=== PATIENT | male | born 1955 | race Caucasian/White ===

== ENCOUNTER 2018-01-19 05:59 | Inpatient (IN) | payer OTHER ==
[2018-01-19] MEDS ORDERED: DEXAMETHASONE 4 MG/ML 1 ML INJ ×2 (07:00→08:14)
[2018-01-19] MEDS ORDERED: CEFAZOLIN 1 GM INJ (07:00)
[2018-01-19] MEDS ORDERED: PROPOFOL 200 MG INJ (07:00)
[2018-01-19] MEDS: LACTATED RINGER'S 1,000 ML IV ×2 (07:16→16:48)
[2018-01-19] MEDS ORDERED: HYDROmorphONE 1 MG/5 ML IV SYRINGE IV (07:30)
[2018-01-19] MEDS ORDERED: ALBUTEROL 0.083% (NEB) 2.5 MG/3 ML AMP HHN (07:30)
[2018-01-19] MEDS ORDERED: OXYCODONE/ACETAMINOPHEN (5/325) TAB PO ×2 (07:30)
[2018-01-19] MEDS ORDERED: FENTAnyl 50 MCG/ML VIAL IV ×2 (07:30)
[2018-01-19] MEDS ORDERED: METOCLOPRAMIDE 10 MG INJ IV (07:30)
[2018-01-19] MEDS ORDERED: MEPERIDINE 25 MG INJ IV (07:30)
[2018-01-19] MEDS ORDERED: DIPHENHYDRAMINE 50 MG INJ IV (07:30)
[2018-01-19] MEDS: CEFTRIAXONE 1 GM/50 ML (PMX) 50 ML IVPB (07:36)
[2018-01-19] MEDS ORDERED: MIDAZOLAM 1 MG/ML 2 ML INJ (07:37)
[2018-01-19] MEDS ORDERED: SUCCINYLCHOLINE CHLORIDE 100 MG/5 ML SYG IV (07:41)
[2018-01-19] MEDS ORDERED: SUGAMMADEX SODIUM 200 MG/2 ML VIAL IV (07:41)
[2018-01-19] MEDS ORDERED: ROCURONIUM 50 MG INJ (07:41)
[2018-01-19] MEDS ORDERED: PROPOFOL 20 ML (07:41)
[2018-01-19] MEDS ORDERED: LIDOCAINE 100 MG SYRINGE (07:41)
[2018-01-19] MEDS ORDERED: FENTAnyl 50 MCG/ML VIAL (07:43)
[2018-01-19] MEDS: LIDOCAINE 1%/EPI 30 ML INJ (08:38)
[2018-01-19] MEDS: THROMBIN 5000 UNIT VIAL (09:00)
[2018-01-19] MEDS: GELATIN SIZE 100 SPONGE (09:00)
[2018-01-19] MEDS: POLYMYXIN/BACITRACIN 1L IRRIG (09:00)
[2018-01-19] MEDS: BUPIVACAINE 0.25% (MPF) 30 ML INJ (10:50)
[2018-01-19] MEDS ORDERED: NALOXONE (0.4 MG/ML) INJ IV (11:30)
[2018-01-19] MEDS ORDERED: ONDANSETRON 4 MG INJ IV (11:30)
[2018-01-19] MEDS ORDERED: ZOLPIDEM 5 MG TAB PO (11:30)
[2018-01-19] MEDS ORDERED: NACL 0.9% 3 ML SYG IV (11:30)
[2018-01-19] MEDS: HYDROmorphONE 1 MG/5 ML IV SYRINGE IV ×2 (11:46→11:57)
[2018-01-19] MEDS: FENTAnyl 50 MCG/ML VIAL IV ×2 (12:03→12:17)
[2018-01-19] MEDS: CEFAZOLIN 1 GM/50 ML (PMX) 50 ML IVPB ×2 (12:04→17:57)
[2018-01-19] MEDS: ONDANSETRON 4 MG INJ IV (12:04)
[2018-01-19] MEDS: HYDROCODONE/APAP (5/325) TAB PO ×6 (16:32→21:54)
[2018-01-20] MEDS: CEFAZOLIN 1 GM/50 ML (PMX) 50 ML IVPB ×2 (00:19→05:32)
[2018-01-20] MEDS: HYDROCODONE/APAP (5/325) TAB PO (06:59)
[2018-01-20] MEDS: LACTATED RINGER'S 1,000 ML IV (10:10)
== END 2018-01-20 11:04 | disposition home or self-care (01) | DRG 517 ==
LOC: REC 05:59 → MS1 12:36
PROC: 01NB0ZZ Release Lumbar Nerve, Open Approach (ICD-10-PCS; principal; 2018-01-19 07:30)
PROC: 0HB6XZZ Excision of Back Skin, External Approach (ICD-10-PCS; 2018-01-19 07:30)
DX: M48.061 Spinal stenosis, lumbar region without neurogenic claudication (principal); M51.16 Intervertebral disc disorders with radiculopathy, lumbar region; M48.07 Spinal stenosis, lumbosacral region; L90.5 Scar conditions and fibrosis of skin; Z72.0 Tobacco use; M46.96 Unspecified inflammatory spondylopathy, lumbar region
CPT/HCPCS: 72020; 88304; 97161